=== PATIENT | female | born 1955 | race Caucasian/White ===

== ENCOUNTER 2017-05-27 18:20 | Emergency (ER) | payer OTHER ==
[~2017-05-27] VITALS: Ht 162.6 cm; Wt 101.6 kg
[~2017-05-27 18:20] MED LIST: BACTRIM DS TAB1 EACH PO; CLARITIN10 M2 PO; CLINDAMYCIN HC150 MG PO; CLINDAMYCIN HC300 MG PO; CYCLOBENZAPRINE10 MG PO; NAPROXEN500 MG PO; ZITHROMAX250 MG PO
[2017-05-27] MEDS ORDERED: METHYLPREDNISOLO4 M1 PO (18:44)
[2017-05-27] MEDS ORDERED: VENTOLIN HFA18 GM INH (18:44)
[2017-05-27] MEDS ORDERED: CLEOCIN HCL300 MG PO (18:44)
== END 2017-05-27 18:56 | disposition home or self-care (01) ==
LOC: ED 18:20
DX: J44.1 Chronic obstructive pulmonary disease with (acute) exacerbation (principal); Z87.891 Personal history of nicotine dependence; Z88.0 Allergy status to penicillin; Z88.2 Allergy status to sulfonamides; Z88.8 Allergy status to other drugs, medicaments and biological substances; Z88.1 Allergy status to other antibiotic agents; Z79.899 Other long term (current) drug therapy
CPT/HCPCS: 99282

== ENCOUNTER 2017-08-11 15:08 | Emergency (ER) | payer OTHER ==
[~2017-08-11] VITALS: Ht 162.6 cm; Wt 101.6 kg
--- OUTSIDE RECORDS SUMMARY | ~2017-08-11 | XMS ---
Demographics + + + | Address | [address] | | | [place] [address] | + + + | Preferred Language | Unknown | + + + | Marital Status | Unknown | + + + | Rastafarian Affiliation | Unknown | + + + | Race | Unknown | + + + | Ethnic Group | Unknown | + + + Author + + + | Author | [facility] | + + + | Organization | [facility] | + + + | Address | [address] | | | [place] [address] | + + + | Phone | | + + + Care Team Providers + + + + | Care Recycling Attendant Name | Role | Phone | + + + + Unavailable | Unavailable | + + + + PROBLEMS +---------+ + + +--------+ + + | Type | Condition | ICD9-CM | OCQ78-XC | Onset | Condition | SNOMED | | | | Code | Code | Dates | Status | Code | +---------+ + + +--------+ + + | Problem | ASTHMA NOS | 493.90 | | | Active | 536793557 | +---------+ + + +--------+ + + | Problem | Screening | | Z12.11 | | Active | 299295837 | | | for colon | | | | | | | | cancer | | | | | | +---------+ + + +--------+ + + | Problem | Screening | Z12.39 | | | Active | 280042366 | | | for breast | | | | | | | | cancer | | | | | | +---------+ + + +--------+ + + | Problem | Lung | R91.8 | | | Active | 329988670 | | | nodules | | | | | | +---------+ + + +--------+ + + | Problem | Diabetes | | E11.65 | | Active | 58299213 | | | mellitus | | | | | | | | type 2, | | | | | | | | uncontroll | | | | | | | | ed | | | | | | +---------+ + + +--------+ + + | Problem | Hypertrigl | | E78.1 | | Active | 450902069 | | | yceridemia | | | | | | +---------+ + + +--------+ + + | Problem | HTN | | I10 | | Active | 74799698 | | | (hypertens | | | | | | | | ion) | | | | | | +---------+ + + +--------+ + + | Problem | Screening | Z13.820 | | | Active | 207458407 | | | for | | | | | | | | osteoporos | | | | | | | | is | | | | | | +---------+ + + +--------+ + + | Problem | Post | | N95.9 | | Active | 450791355 | | | menopausal | | | | | | | | problems | | | | | | +---------+ + + +--------+ + + | Problem | Obesity | | E66.9 | | Active | 978042353 | +---------+ + + +--------+ + + | Problem | History of | Z87.891 | | | Active | 7308549679 | | | tobacco | | | | | 103 | | | use | | | | | | +---------+ + + +--------+ + + | Problem | Skin tags, | L91.8 | | | Active | 749799595 | | | multiple | | | | | | | | acquired | | | | | | +---------+ + + +--------+ + + ALLERGIES Unknown Allergies SOCIAL HISTORY No smoking Hx information available PLAN OF CARE VITAL SIGNS MEDICATIONS Unknown Medications RESULTS No Results PROCEDURES No Known procedures IMMUNIZATIONS No Known Immunizations"
--- OUTSIDE RECORDS SUMMARY | ~2017-08-11 | XMS ---
Demographics + + + | Address | [address] | | | [place] [address] | + + + | Preferred Language | Unknown | + + + | Marital Status | Unknown | + + + | Buddhist Affiliation | Unknown | + + + | Race | Unknown | + + + | Ethnic Group | Unknown | + + + Author + + + | Author | [facility] | + + + | Organization | [facility] | + + + | Address | [address] | | | [place] [address] | + + + | Phone | | + + + Care Team Providers + + + + | Care Multimedia Designer Name | Role | Phone | + + + + Unavailable | Unavailable | + + + + PROBLEMS +---------+ + + +--------+ + + | Type | Condition | ICD9-CM | ZJA13-CX | Onset | Condition | SNOMED | | | | Code | Code | Dates | Status | Code | +---------+ + + +--------+ + + | Problem | ASTHMA NOS | 493.90 | | | Active | 141502202 | +---------+ + + +--------+ + + | Problem | Screening | | Z12.11 | | Active | 038258569 | | | for colon | | | | | | | | cancer | | | | | | +---------+ + + +--------+ + + | Problem | Screening | Z12.39 | | | Active | 914876633 | | | for breast | | | | | | | | cancer | | | | | | +---------+ + + +--------+ + + | Problem | Lung | R91.8 | | | Active | 303968575 | | | nodules | | | | | | +---------+ + + +--------+ + + | Problem | Diabetes | | E11.65 | | Active | 47773023 | | | mellitus | | | | | | | | type 2, | | | | | | | | uncontroll | | | | | | | | ed | | | | | | +---------+ + + +--------+ + + | Problem | Hypertrigl | | E78.1 | | Active | 674991042 | | | yceridemia | | | | | | +---------+ + + +--------+ + + | Problem | HTN | | I10 | | Active | 31135057 | | | (hypertens | | | | | | | | ion) | | | | | | +---------+ + + +--------+ + + | Problem | Screening | Z13.820 | | | Active | 929751407 | | | for | | | | | | | | osteoporos | | | | | | | | is | | | | | | +---------+ + + +--------+ + + | Problem | Post | | N95.9 | | Active | 782682137 | | | menopausal | | | | | | | | problems | | | | | | +---------+ + + +--------+ + + | Problem | Obesity | | E66.9 | | Active | 633919295 | +---------+ + + +--------+ + + | Problem | History of | Z87.891 | | | Active | 7828369456 | | | tobacco | | | | | 103 | | | use | | | | | | +---------+ + + +--------+ + + | Problem | Skin tags, | L91.8 | | | Active | 667929793 | | | multiple | | | | | | | | acquired | | | | | | +---------+ + + +--------+ + + ALLERGIES Unknown Allergies SOCIAL HISTORY No smoking Hx information available PLAN OF CARE VITAL SIGNS MEDICATIONS Unknown Medications RESULTS No Results PROCEDURES No Known procedures IMMUNIZATIONS No Known Immunizations"
--- OUTSIDE RECORDS SUMMARY | ~2017-08-11 | XMS ---
Demographics + + + | Address | [address] | | | [place] [address] | + + + | Preferred Language | Unknown | + + + | Marital Status | Unknown | + + + | Roman Catholic Affiliation | Unknown | + + + | Race | Unknown | + + + | Ethnic Group | Unknown | + + + Author + + + | Author | [facility] | + + + | Organization | [facility] | + + + | Address | [address] | | | [place] [address] | + + + | Phone | | + + + Care Team Providers + + + + | Care Fuel Cell Battery Technician Name | Role | Phone | + + + + Unavailable | Unavailable | + + + + PROBLEMS + + + + + + + + | Type | Condition | ICD9-CM | [id number] | Onset | Condition | SNOMED | | | | Code | Code | Dates | Status | Code | + + + + + + + + | Problem | ASTHMA NOS | 493.90 | | | Active | 107759740 | + + + + + + + + | Problem | Screening | | Z12.11 | | Active | 452156300 | | | for colon | | | | | | | | cancer | | | | | | + + + + + + + + | Problem | Screening | Z12.39 | | | Active | 477136678 | | | for breast | | | | | | | | cancer | | | | | | + + + + + + + + | Problem | HTN | | I10 | | Active | 24907171 | | | (hypertens | | | | | | | | ion) | | | | | | + + + + + + + + | Problem | Screening | Z13.820 | | | Active | 163941266 | | | for | | | | | | | | osteoporos | | | | | | | | is | | | | | | + + + + + + + + | Problem | Post | | N95.9 | | Active | 028150227 | | | menopausal | | | | | | | | problems | | | | | | + + + + + + + + | Problem | Obesity | | E66.9 | | Active | 988209196 | + + + + + + + + | Problem | History of | Z87.891 | | | Active | 2490481094 | | | tobacco | | | | | 103 | | | use | | | | | | + + + + + + + + | Problem | Skin tags, | L91.8 | | | Active | 036007746 | | | multiple | | | | | | | | acquired | | | | | | + + + + + + + + | Assessment | Obesity | | E66.9 | 30 Mar, | Active | 957493912 | | | | | | 2016 | | | + + + + + + + + | Problem | Lung | R91.8 | | | Active | 522359026 | | | nodules | | | | | | + + + + + + + + | Assessment | Chronic | | R53.82 | 30 Mar, | Active | 80053336 | | | fatigue, | | | 2016 | | | | | unspecifie | | | | | | | | d | | | | | | + + + + + + + + | Problem | Diabetes | | E11.65 | | Active | 67517459 | | | mellitus | | | | | | | | type 2, | | | | | | | | uncontroll | | | | | | | | ed | | | | | | + + + + + + + + | Assessment | Fibromyalg | | M79.7 | 30 Mar, | Active | 454346881 | | | ia | | | 2017 | | | + + + + + + + + | Problem | Hypertrigl | | E78.1 | | Active | 532116407 | | | yceridemia | | | | | | + + + + + + + + ALLERGIES + + + + +--------+ | Substance | Reaction | Event Type | Date | Status | + + + + +--------+ | codiene | dizzy, tongue | Drug Allergy | Aug, | Active | | | swells | | | | + + + + +--------+ | Tetracycline | dizzy | Drug Allergy | Aug, | Active | + + + + +--------+ | Penicillin | swelling | Drug Allergy | Aug, | Active | + + + + +--------+ | Sulfa | dizzy, swelling | Drug Allergy | Aug, | Active | + + + + +--------+ | keflex | tongue swells | Drug Allergy | Aug, | Active | + + + + +--------+ | Flagyl | pass out | Drug Allergy | Aug, | Active | + + + + +--------+ | Erythromycin | dizzy | Drug Allergy | Aug, | Active | + + + + +--------+ | Aspirin | dizzy, face | Drug Allergy | Aug, | Active | | | swells, hard to | | | | | | breathe | | | | + + + + +--------+ SOCIAL HISTORY No smoking Hx information available PLAN OF CARE VITAL SIGNS + + + + | Height | 64 in | 2016-09-13 | + + + + | Weight | 220 lbs | 2016-09-13 | + + + + | BMI | 37.76 kg/m2 | 2016-09-13 | + + + + | Temperature | 98.4 degrees Fahrenheit | 2016-09-13 | + + + + | Heart Rate | 99 /min | 2016-09-13 | + + + + | Blood pressure systolic | 125 mm Hg | 2016-09-13 | + + + + | Blood pressure diastolic | 87 mm Hg | 2016-09-13 | + + + + MEDICATIONS + + + + + + + +--------+ | Medicati | Instruct | Dosage | Frequenc | Start | End Date | Duration | Status | | on | ions | | y | Date | | | | + + + + + + + +--------+ | Claritin | Orally | 1 tablet | | | | | Active | | 10 MG | Once | | | | | | | | | every 3 | | | | | | | | | days prn | | | | | | | + + + + + + + +--------+ | Albutero | Inhalati | 1 puff | 4h | 14 Aug, | | 15 | Active | | l | on every | as | | 2017 | | day(s) | | | Sulfate | 4 hrs | needed | | | | | | | 108 (90 | | | | | | | | | Base) | | | | | | | | | MCG/ACT | | | | | | | | + + + + + + + +--------+ | Ibuprofe | Orally | 2 | | | | | Active | | n 200 MG | every | tablets | | | | | | | | 4.5 | as | | | | | | | | hours | needed | | | | | | + + + + + + + +--------+ | Lisinopr | Orally | 1 tablet | 24h | 30 Mar, | | 30 | Active | | il 10 MG | Once a | | | 2017 | | day(s) | | | | day | | | | | | | + + + + + + + +--------+ | Metformi | Orally | 1 tablet | 12h | 29 Dec, | | 30 days | Active | | n HCl | Twice a | with | | 2015 | | | | | 500 mg | day | meals, | | | | | | | | | 500mg | | | | | | | | | am, and | | | | | | | | | 550mg pm | | | | | | + + + + + + + +--------+ RESULTS + +--------+------+ + | Name | Result | Date | Reference Range | + +--------+------+ + | Comprehensive | | | | | Metabolic Panel | | | | + +--------+------+ + | Microalbumin, Urine | | | | | (Random) | | | | + +--------+------+ + | MICROALB, URINE | | | | + +--------+------+ + | MICROALB/CREAT | | | | + +--------+------+ + | CREATININE, URINE | | | | | (RANDOM) | | | | + +--------+------+ + | C Peptide | | | | + +--------+------+ + | C Peptide | | | | + +--------+------+ + | HGB A1C A1C | | | | + +--------+------+ + | Gluc Mean | | | | + +--------+------+ + | Hgb A1c | | | | + +--------+------+ + | CBC with | | | | | Differential Count | | | | + +--------+------+ + PROCEDURES + + + + + | Procedure | Date Ordered | Related Diagnosis | Body Site | + + + + + | REAGENT STRIP/BLOOD | September 13, 2016 | | | | GLUCOSE | | | | + + + + + | Est Level IV | September 13, 2016 | | | | Extended | | | | + + + + + | DSCH[facility] MED/CURRENT | September 13, 2016 | | | | MED MERGE | | | | + + + + + | HEMOGLOBIN A1C | September 13, 2016 | | | | LEVEL > 9.0% | | | | + + + + + IMMUNIZATIONS No Known Immunizations"
[~2017-08-11 15:08] MED LIST changes: +CLEOCIN HCL300 MG PO; +METHYLPREDNISOLO4 M1 PO; +VENTOLIN HFA18 GM INH
== END 2017-08-11 18:33 | disposition home or self-care (01) ==
LOC: ED 15:08
PROC: 2W38X1Z Immobilization of Right Upper Extremity using Splint (ICD-10-PCS; principal; 2017-08-11)
DX: S52.121A Displaced fracture of head of right radius, initial encounter for closed fracture (principal); F17.200 Nicotine dependence, unspecified, uncomplicated; Z88.0 Allergy status to penicillin; Z88.2 Allergy status to sulfonamides; Z88.6 Allergy status to analgesic agent; Z88.5 Allergy status to narcotic agent; Z88.8 Allergy status to other drugs, medicaments and biological substances; Z88.1 Allergy status to other antibiotic agents; Z79.899 Other long term (current) drug therapy; W01.10XA Fall on same level from slipping, tripping and stumbling with subsequent striking against unspecified object, initial encounter; Y93.01 Activity, walking, marching and hiking; Y92.89 Other specified places as the place of occurrence of the external cause
CPT/HCPCS: 29125; 73080; 99283

== ENCOUNTER 2017-08-16 04:13 | Emergency (ER) | payer OTHER ==
[~2017-08-16] VITALS: Ht 162.6 cm; Wt 101.2 kg
[2017-08-16] MEDS ORDERED: TESSALON PERLE100 MG PO (04:44)
[2017-08-16] MEDS ORDERED: CLARITHROMYCIN500 MG PO (04:44)
== END 2017-08-16 04:54 | disposition home or self-care (01) ==
LOC: ED 04:13
DX: J44.0 Chronic obstructive pulmonary disease with (acute) lower respiratory infection (principal); J20.9 Acute bronchitis, unspecified; J45.909 Unspecified asthma, uncomplicated; Z87.891 Personal history of nicotine dependence; Z88.0 Allergy status to penicillin; Z88.2 Allergy status to sulfonamides; Z88.5 Allergy status to narcotic agent; Z88.6 Allergy status to analgesic agent; Z88.1 Allergy status to other antibiotic agents; Z88.8 Allergy status to other drugs, medicaments and biological substances; Z79.899 Other long term (current) drug therapy
CPT/HCPCS: 99283

== ENCOUNTER 2019-12-21 21:04 | Emergency (ER) | payer OTHER ==
[~2019-12-21] VITALS: Ht 162.6 cm; Wt 101.2 kg
--- OUTSIDE RECORDS SUMMARY | ~2019-12-21 | XMS | Encounter Summary ---
Demographics + + + | Address | [address] | | | [place] [address] | + + + | Home Phone | | + + + | Preferred Language | Unknown | + + + | Marital Status | | + + + | Faith Affiliation | Unknown | + + + | Race | Unknown | + + + | Ethnic Group | Unknown | + + + Author + + + | Author | [facility] | | | and [place] | + + + | Organization | [facility] | | | and [place] | + + + | Address | Unknown | + + + | Phone | Unavailable | + + + Support + + +---------+ + | Name | Relationship | Address | Phone | + + +---------+ + | Cesario Harkins | FÉLIX | Unknown | | + + +---------+ + Care Team Providers + +------+ + | Care Diamond Powder Technician Name | Role | Phone | + +------+ + PCP | Unavailable | + +------+ + Encounter Details +--------+ + + + + | Date | Type | Department | Care Team | Description | +--------+ + + + + | 04/21/ | Hospital | [facility] | | | | 1998 | Encounter | MED CTR GENERIC OP | | | | | | CONV DEPT [address] | | | | | | [place], | | | | | | [place] [address] | | | | | | [phone] | | | +--------+ + + + + Social History + +-------+ +--------+------+ | Tobacco Use | Types | Packs/Day | Years | Date | | | | | Used | | + +-------+ +--------+------+ | Never Assessed | | | | | + +-------+ +--------+------+ + + + | Sex Assigned at | Date Recorded | | | | + + + | Not on file | | + + + documented as of this encounter Plan of Treatment Not on filedocumented as of this encounter Visit Diagnoses Not on filedocumented in this encounter"
--- OUTSIDE RECORDS SUMMARY | ~2019-12-21 | XMS | Clinical Summary ---
Demographics + + + | Address | [address] | | | [place] [address] | + + + | Home Phone | | + + + | Preferred Language | Unknown | + + + | Marital Status | | + + + | Islam Affiliation | Unknown | + + + | Race | Unknown | + + + | Ethnic Group | Unknown | + + + Author + + + | Author | [facility] | | | and [place] | + + + | Organization | [facility] | | | and [...] Team Providers + +------+ + | Care Sound Engineering Technician Name | Role | Phone | + +------+ + PCP | Unavailable | + +------+ + Allergies Not on File Medications Not on file Active Problems Not on file Social History + +-------+ +--------+------+ | Tobacco [...] on file | | + + + Last Filed Vital Signs Not on file Plan of Treatment + + +-------+ + | Health Maintenance | Due Date | Last | Comments | | | | Done | | + + +-------+ + | Vaccine: | | | | | Dtap/Tdap/Td (1 - | 5 | | | | Tdap) | | | | + + +-------+ + | Cervical Cancer | | | | | Screening (Pap) | 6 | | | + + +-------+ + | Vaccine: Zoster (1 | | | | | of 2) | 6 | | | + + +-------+ + | Breast Cancer | | | | | Screening | 1 | | | + + +-------+ + | Vaccine: Influenza | | | | | (#1) | 0 | | | + + +-------+ + Results Not on filefrom Last 3 Months"
--- OUTSIDE RECORDS SUMMARY | ~2019-12-21 | XMS | Encounter Summary ---
Demographics + + + | Address | [address] | | | [place] [address] | + + + | Home Phone | | + + + | Preferred Language | Unknown | + + + | Marital Status | | + + + | Hoahaoism Affiliation | Unknown | + + + | Race | Unknown | + + + | Ethnic Group | Unknown | + + + Author + + + | Author | [facility] | | | and [place] | + + + | Organization | [facility] | | | and [...] Team Providers + +------+ + | Care Director Orange Name | Role | Phone | + +------+ + PCP | Unavailable | + +------+ + Encounter Details +--------+ + + + + | Date | Type | Department | Care Team | Description | +--------+ + + + + | 11/08/ | Hospital | [facility] | Unknown, | | | 1992 | Encounter | MED CTR XRAY [address] | [place] . | | | | | [place] | | | | | | [place] [address] | (Fax) | | | | | [phone] | | | +--------+ + + + [...]
[~2019-12-21 21:04] MED LIST changes: +CLARITHROMYCIN500 MG PO; +TESSALON PERLE100 MG PO
[2019-12-21] MEDS ORDERED: NOVOLIN 70100 UNIT/1 (23:08)
== END 2019-12-21 23:35 | disposition home or self-care (01) ==
LOC: ED 21:04
DX: S39.012A Strain of muscle, fascia and tendon of lower back, initial encounter (principal); E11.9 Type 2 diabetes mellitus without complications; Z88.0 Allergy status to penicillin; Z88.2 Allergy status to sulfonamides; Z88.6 Allergy status to analgesic agent; Z88.5 Allergy status to narcotic agent; Z88.8 Allergy status to other drugs, medicaments and biological substances; Z88.1 Allergy status to other antibiotic agents; Z79.4 Long term (current) use of insulin; W22.8XXA Striking against or struck by other objects, initial encounter
CPT/HCPCS: 99283

== ENCOUNTER 2020-04-24 18:29 | Emergency (ER) | payer OTHER ==
[~2020-04-24] VITALS: Ht 162.6 cm; Wt 108.9 kg
[~2020-04-24 18:29] MED LIST changes: +NOVOLIN 70100 UNIT/1
== END 2020-04-24 19:00 | disposition home or self-care (01) ==
LOC: ED 18:29
DX: L02.211 Cutaneous abscess of abdominal wall (principal); Z48.817 Encounter for surgical aftercare following surgery on the skin and subcutaneous tissue; J45.909 Unspecified asthma, uncomplicated; E11.9 Type 2 diabetes mellitus without complications; Z87.891 Personal history of nicotine dependence; Z88.0 Allergy status to penicillin; Z88.2 Allergy status to sulfonamides; Z88.1 Allergy status to other antibiotic agents; Z88.8 Allergy status to other drugs, medicaments and biological substances; Z79.4 Long term (current) use of insulin
CPT/HCPCS: 99282

== ENCOUNTER → 2023-04-03 | Emergency (ER) | payer MEDICARE, OTHER ==
[~2023-04-03] VITALS: Ht 162.6 cm; Wt 110.7 kg
[~2023-04-03] MED LIST changes: +CLARITIN10 MG PO; +LEVOFLOXACIN500 MG PO; +ONDANSETRON ODT8 MG PO; +PREDNISONE20 MG PO
[2023-04-03 21:38] LABS: INFLUENZA B NAA NEGATIVE (NEGATIVE); RESPIRATORY SYNCYTIAL VIR NAA NEGATIVE (NEGATIVE)
[2023-04-03 23:15] VITALS: BP 120/72
== END ==
LOC: ED 17:01
PROVIDERS: Family Medicine
DX: I10 Essential (primary) hypertension (principal); J45.909 Unspecified asthma, uncomplicated; E11.9 Type 2 diabetes mellitus without complications; Z20.822 Contact with and (suspected) exposure to COVID-19; Z87.891 Personal history of nicotine dependence; Z88.0 Allergy status to penicillin; Z88.2 Allergy status to sulfonamides; Z88.1 Allergy status to other antibiotic agents; Z88.5 Allergy status to narcotic agent; Z88.8 Allergy status to other drugs, medicaments and biological substances; Z79.4 Long term (current) use of insulin; Z79.899 Other long term (current) drug therapy
CPT/HCPCS: 70450; 71045; 87502; 99284-25; U0002

== ENCOUNTER 2023-08-06 20:18 | Emergency (ER) | payer MEDICARE, OTHER ==
[~2023-08-06] VITALS: Ht 162.6 cm; Wt 110.7 kg
--- OUTSIDE RECORDS SUMMARY | 2023-08-06 20:26 | XMS ---
PreManage Notification: DARYL JUSTICE Security Clinical Reimbursement Specialist Events No recent Security Events currently on file CRITERIA MET - [facility] - 2 Visits in 30 Days CARE PROVIDERS -[place]- Dentist: Production Worker [facility] PHONE: [phone] Kory has no Care Guidelines for this patient. EAracelis VISIT COUNT (12 MO.) 3 [facility] TOTAL 3 NOTE: Visits indicate total known visits. ED/UCC VISIT TRACKING (12 MO.) 08/06/2023 20:18 [facility] TYPE: Emergency COMPLAINT: - COLD SYMPTOMS 08/06/2023 18:15 [facility] TYPE: Emergency COMPLAINT: - RT SIDED PAIN 04/03/2023 17:01 [facility] TYPE: Emergency COMPLAINT: - BLOOD PRESSURE PROBLEM DIAGNOSES: - Allergy status to narcotic agent - Allergy status to other antibiotic agents - Allergy status to other drugs, medicaments and biological substances - Allergy status to penicillin - Allergy status to sulfonamides - Contact with and (suspected) exposure to COVID-19 - Essential (primary) hypertension - bed bug exterminator (current) use of insulin - Other terminal carman (current) drug therapy - Personal history of nicotine dependence - Type 2 diabetes mellitus without complications - Unspecified asthma, uncomplicated INPATIENT VISIT TRACKING (12 MO.) No inpatient visits to display in this time frame [email or web address]
[2023-08-06 20:51] LABS: BASOPHILS 0.9 % (0-2); EOSINOPHILS 2.4 % (0-6); HEMATOCRIT 44.9 % (35.0-50.0); HEMOGLOBIN 14.8 g/dL (12.0-18.0); LYMPHOCYTES 34.6 % (24-44); MCH 28.6 (27-36); MCHC 33.1 g/dl (30-36); MCV 86.5 fl (81-99); NEUTROPHILS 53.1 % (39-80); PLATELET COUNT 220 K/uL (140-440); RBC 5.19 M/ul (4.3-5.7); RDW 14.9 (10.5-15.0)
[2023-08-06 21:11] LABS: ALBUMIN 3.2 g/dL (3.4-5.0); ALBUMIN/GLOBULIN RATIO 0.82 (1.1-2.4); ANION GAP 18.6 (7-21); BILIRUBIN, TOTAL 0.4 ng/dL (0.2-1.0); BUN/CREATININE RATIO 26.37 (6.0-28.6); CALCIUM 8.8 mg/dL (8.5-10.1); CREATININE, SERUM 0.91 mg/dL (0.55-1.02); POTASSIUM 4.6 mmol/L (3.5-5.1); PROTEIN, TOTAL 7.1 g/dL (6.4-8.2)
[2023-08-06 21:25] LABS: INFLUENZA B NAA NEGATIVE (NEGATIVE); RESPIRATORY SYNCYTIAL VIR NAA NEGATIVE (NEGATIVE)
[2023-08-06 22:37] VITALS: BP 164/65
--- NOTE | 2023-08-07 14:13 | EKG ---
[facility] [address] [facility] [place] [address] Signed Normal sinus rhythm Low voltage QRS Borderline ECG When compared with ECG of 09-APR-2021 03:16, No significant change was found Confirmed by DARRIAN AUGUSTE MD ([id number]) on 08/07/2023 2:13:35 PM Electronically Signed By: DARRIAN AUGUSTE 08/07/23 1413 PATIENT NAME: DARYL JUSTICE Electrocardiogram DATE OF : 57 PHYSICIAN: DARRIAN AUGUSET REPORT #: [id number] REPORT IS CONFIDENTIAL AND NOT TO BE RELEASED WITHOUT AUTHORIZATION
== END 2023-08-06 22:37 | disposition home or self-care (01) ==
LOC: ED 20:18
PROVIDERS: Internal Medicine
DX: J06.9 Acute upper respiratory infection, unspecified (principal); B97.89 Other viral agents as the cause of diseases classified elsewhere; E11.65 Type 2 diabetes mellitus with hyperglycemia; J45.909 Unspecified asthma, uncomplicated; Z87.891 Personal history of nicotine dependence; Z88.0 Allergy status to penicillin; Z88.2 Allergy status to sulfonamides; Z88.6 Allergy status to analgesic agent; Z88.1 Allergy status to other antibiotic agents; Z88.5 Allergy status to narcotic agent; Z88.8 Allergy status to other drugs, medicaments and biological substances; Z79.4 Long term (current) use of insulin; Z79.52 Long term (current) use of systemic steroids; Z79.899 Other long term (current) drug therapy
CPT/HCPCS: 36415; 71046; 80053; 84484; 85025; 87502; 93005; 93010; 99284-25; U0002

== ENCOUNTER 2024-08-29 22:43 | Emergency (ER) | payer MEDICARE, OTHER ==
[~2024-08-29] VITALS: Ht 162.6 cm; Wt 105.0 kg
[2024-08-29] MEDS ORDERED: TRIAMCINOLONE A15 G3 TOP (23:43)
[2024-08-29] MEDS ORDERED: TRIAMCINOLONE 0.1% 15 GM TUBE TOP ONE (23:45)
[2024-08-29 23:52] VITALS: BP 142/84
== END 2024-08-29 23:53 | disposition home or self-care (01) ==
LOC: ED 22:43
DX: L25.5 Unspecified contact dermatitis due to plants, except food (principal); J45.909 Unspecified asthma, uncomplicated; E11.9 Type 2 diabetes mellitus without complications; Z87.891 Personal history of nicotine dependence; Z88.0 Allergy status to penicillin; Z88.2 Allergy status to sulfonamides; Z88.8 Allergy status to other drugs, medicaments and biological substances; Z88.1 Allergy status to other antibiotic agents; Z88.4 Allergy status to anesthetic agent; Z79.4 Long term (current) use of insulin; Z79.899 Other long term (current) drug therapy
CPT/HCPCS: 99282

== ENCOUNTER 2024-12-01 14:59 | Emergency (ER) | payer OTHER, MEDICARE ==
[~2024-12-01] VITALS: Ht 162.6 cm; Wt 105.0 kg
[~2024-12-01 14:59] MED LIST changes: +TRIAMCINOLONE A15 G3 TOP
[2024-12-01] MEDS ORDERED: LIDODERM1 EACH TOP (15:32)
[2024-12-01] MEDS ORDERED: NAPROSYN500 MG PO (15:32)
[2024-12-01 15:45] VITALS: BP 193/90
== END 2024-12-01 15:46 | disposition home or self-care (01) ==
LOC: ED 14:59
DX: S46.812A Strain of other muscles, fascia and tendons at shoulder and upper arm level, left arm, initial encounter (principal); W54.8XXA Other contact with dog, initial encounter; Z79.52 Long term (current) use of systemic steroids; Z79.4 Long term (current) use of insulin; Z88.0 Allergy status to penicillin; Z88.2 Allergy status to sulfonamides; Z88.1 Allergy status to other antibiotic agents; Z88.8 Allergy status to other drugs, medicaments and biological substances; Z88.6 Allergy status to analgesic agent; Z87.891 Personal history of nicotine dependence
CPT/HCPCS: 99283